=== PATIENT | female | born 1990 | race Caucasian/White ===

== ENCOUNTER 2021-01-24 10:57 | Emergency (ER) | payer OTHER, SELFPAY ==
[2021-01-24 11:20] VITALS: BP 136/94; PULSE 71; RESP 18; TEMP 36.5; O2SAT 99
--- NOTE | 2021-01-24 12:52 | ED.WOUNDLAC ---
HPI - Wound/Laceration General Chief Complaint: Wound/Laceration Stated Complaint: laceration finger Time Seen by Provider: 01/24/21 12:08 History of Present Illness HPI narrative: She was in a store and a counter top fell onto her right hand. She had significant bleeding from her hand and was not able to clearly view the injury, so she came in to get it sutured. After arriving the bleeding stopped and she now realizes that she has only a small skin avulsion. She denies any other injury. Pain is mild. Related Data Allergies Allergy/AdvReac Type Severity Reaction Status Date / Time Contrast Media Allergy Intermediate Rash Uncoded 01/24/21 11:17 PEANUTS Allergy Unknown ANAPHYLATIC Uncoded 01/24/21 11:17 REACTION. Review of Systems Review of Systems: All systems reviewed & are unremarkable except as noted in HPI and below Constitutional: Constitutional: Reports no additional constitutional complaints Respiratory: Respiratory: Denies dyspnea Musculoskeletal: Musculoskeletal: Denies back pain Neurologic: Denies numbness and Denies weakness [facility] Past Medical History Medical History Anxiety Attention deficit disorder Dyshidrotic eczema HLD (hyperlipidemia) PCOS (polycystic ovarian syndrome) Surgical History Surgical History History of cholecystectomy (~2010) Hx of tonsillectomy Previous section Family History Family History Father Hypertension Heart disease Diabetes mellitus Leukemia Grandparent Hypertension Heart disease Diabetes mellitus Depression Mother Lymphoma Hypertension Heart disease Diabetes mellitus Social History Social History Smoking status: Never smoker Tobacco type: cigarettes Alcohol intake: current Substance use: unknown Gender identity (if verbalized by the patient): Female Exam Const: General: healthy appearing, no acute distress and alert Orientation/consciousness: patient oriented x3 HENMT: Head: normal to inspection Resp: Effort & Inspection: normal respiratory effort Cardio: Other: 2+ right radial pulse Skin: Other: 1 cm skin avulsion to right thenar eminence Neuro: Other: motor and sensation intact Extrem: Other: Full Rom Course Vital Signs Vital signs: Vital Signs Temperature 36.5 C 01/24/21 11:20 Pulse Rate 71 01/24/21 11:20 Respiratory Rate 18 01/24/21 11:20 Blood Pressure 136/94 H 01/24/21 11:20 Pulse Oximetry 99 01/24/21 11:20 Temperature 36.5 C 01/24/21 11:20 Pulse Rate 71 01/24/21 11:20 Respiratory Rate 18 01/24/21 11:20 Blood Pressure 136/94 H 01/24/21 11:20 Pulse Oximetry 99 01/24/21 11:20 MDM - Wound/Laceration Differential Diagnosis Differential diagnosis: Likely avulsion of skin Discharge Plan Discharge Clinical Impression: Avulsion of skin of right hand Patient Disposition: Home, Self-Care Condition: Stable Instructions: Skin Avulsion (ED) Prescriptions: No Action duloxetine 60 mg capsule,delayed release(DR/EC) 60 mg PO DAILY Qty: 30 RF: 3 gabapentin 300 mg capsule 300 mg PO QHS Qty: 30 RF: 3 nabumetone 500 mg tablet 500 mg PO BID Qty: 60 RF: 1 Follow-up/Referrals: Shannon Winchester MD [Primary Care Provider] -
== END 2021-01-24 13:20 | disposition home or self-care (01) ==
PROVIDERS: Emergency Provider Emergency Medicine; PCP Family Medicine
DX: S61.401A Unspecified open wound of right hand, initial encounter (principal); E78.5 Hyperlipidemia, unspecified; E28.2 Polycystic ovarian syndrome; W20.8XXA Other cause of strike by thrown, projected or falling object, initial encounter
CPT/HCPCS: 99282

== ENCOUNTER 2021-02-28 19:05 | Emergency (ER) | payer OTHER, SELFPAY ==
[2021-02-28 19:13] VITALS: BP 186/109; PULSE 104; RESP 20; TEMP 36.6; O2SAT 99
[2021-02-28 19:37] LABS: Basophils Absolute Auto 0.1 K/mm3 (0.0-0.1); Basophils Percent Auto 0.7 % (0.2-1.2); Eosinophils Absolute Auto 0.5 K/mm3 (0-0.3); Eosinophils Percent Auto 4.5 % (0-4.4); Hematocrit 45.6 % (37.0-47.0); Hemoglobin 15.2 g/dL (12.0-15.0); Immature Granulocyte Absolute 0.03 K/mm3 (0.00-0.031); Immature Granulocyte Percent A 0.3 % (0-0.5); Lymphocytes Absolute Auto 3.85 K/mm3 (0.9-3.2); Lymphocytes Percent Auto 36.6 % (18.3-44.2); Mean Corpuscular HGB Conc 33.3 g/dl (32-36); Mean Corpuscular Hemoglobin 30.3 pg (26-34); Mean Corpuscular Volume 90.8 fl (80-100); Mean Platelet Volume 9.9 fl (7.4-10.4); Monocytes Absolute Auto 0.6 K/mm3 (0.1-0.6); Monocytes Percent Auto 5.3 % (2.6-8.5); Neutrophils Absolute Auto 5.6 K/mm3 (1.3-6.7); Neutrophils Percent Auto 52.6 % (45.5-73.1); Platelet Count Result 360 k/mm3 (150-375); Red Blood Count 5.02 M/mm3 (4.2-5.4); White Blood Count 10.5 K/mm3 (4.5-10.0)
[2021-02-28 19:38] LABS: Alanine Aminotransferase 23 U/L (4-35); Albumin Level 4.8 g/dL (3.5-5.1); Alkaline Phosphatase 76 U/L (38-126); Anion Gap 12 mmol/L (8-16); Aspartate Amino Transferase 34 U/L (14-36); Bilirubin,Total 0.9 mg/dL (0.2-1.3); Blood Urea Nitrogen 18 mg/dL (7-17); Calcium 9.5 mg/dL (8.4-10.2); Carbon Dioxide 22 mmol/L (22-30); Chloride 105 mmol/L (98-107); Estimated CRCL calculation 126 ml/min; Estimated Glomerular Filt Rate > 60; Glucose 89 mg/dL (65-110); Lipase 98 U/L (23-300); Potassium 4.3 mmol/L (3.4-5.0); Sodium 139 mmol/L (137-145)
[2021-02-28 20:33] LABS: Add Urine Microscopic? YES; Appearance Urine Clear (Clear); Bilirubin Urine Negative (Negative); Blood Urine 1+ (Negative); Color Urine Yellow (Yellow); Glucose Urine UA Negative (Negative); Ketones Urine Negative (Negative); Leukocyte Esterase Ur Negative LEU/UL (Negative); Mucus Urine Rare /lpf; Nitrate Urine Negative (Negative); Protein Urine Negative (Negative); RBC Urine 0-2 /hpf (0-2); Specific Grav Ur 1.013 (1.001-1.035); Squamous Epithelial Cell Urine Rare /hpf (Few); Urobilinogen Urine Negative mg/dL (<2.0); WBC Urine 0-3 /hpf
--- NOTE | 2021-02-28 21:02 | PC.NURSE ---
Pt ambulated to desk with steady, even gait. reported she was leaving and her boyfriend would pick her up. seen leaving waiting room.
== END 2021-02-28 21:20 | disposition left against medical advice (07) ==
LOC: ANHED 21:10
PROVIDERS: Emergency Provider Emergency Medicine; PCP Family Medicine
DX: R10.2 Pelvic and perineal pain (principal)
CPT/HCPCS: 36415; 80053; 81001; 81025; 83690; 85025; 99199

== ENCOUNTER 2021-03-01 08:32 | Emergency (ER) | payer OTHER, SELFPAY ==
[2021-03-01 08:36] VITALS: BP 155/99; PULSE 130; RESP 18; TEMP 37.1; O2SAT 99
--- NOTE | 2021-03-01 08:46 | ED.EXTPRO ---
HPI - Extremity Problem General Chief complaint: Extremity Problem,Nontraumatic Stated complaint: left hip pain Time Seen by Provider: 03/01/21 08:45 History of Present Illness HPI Narrative: 30 yo female w/ h/o fibromyalgia presents to the ED for left hip pain. She has had pain in the left hip and buttock radiating down the lateral portion of the leg fr the past few days. She has had similar pain before, but never this severe. She also has lower abdominal cramping. She has been taking naproxen without relief. Related Data Allergies Allergy/AdvReac Type Severity Reaction Status Date / Time peanut Allergy Severe Anaphylactic Verified 03/01/21 09:03 Shock Iodinated Contrast Media Allergy Unknown Rash Verified 03/01/21 09:03 Review of Systems Review of Systems: All systems reviewed & are unremarkable except as noted in HPI and below Constitutional: Constitutional: Denies chills and Denies fever(s) ENT: Reports system reviewed and no additional complaints, except as documented Cardiovascular: Cardiovascular: Denies chest pain Respiratory: Respiratory: Denies dyspnea Gastrointestinal: Gastrointestinal: Reports as per HPI Genitourinary: Genitourinary: Denies hematuria and Denies dysuria Neurologic: Denies dizziness and Denies weakness [facility] Past Medical History Medical History Anxiety Attention deficit disorder Dyshidrotic eczema HLD (hyperlipidemia) PCOS (polycystic ovarian syndrome) Surgical History Surgical History History of cholecystectomy (~2010) Hx of tonsillectomy Previous section Family History Family History Father Hypertension Heart disease Diabetes mellitus Leukemia Grandparent Hypertension Heart disease Diabetes mellitus Depression Mother Lymphoma Hypertension Heart disease Diabetes mellitus Social History Social History Smoking status: Never smoker Tobacco type: cigarettes Alcohol intake: current Substance use: unknown Gender identity (if verbalized by the patient): Female Exam Const: General: healthy appearing, no acute distress and alert Orientation/consciousness: patient oriented x3 HENMT: Head: normal to inspection Resp: Effort & Inspection: normal respiratory effort Auscultation: clear to auscultation bilaterally, no rales, no rhonchi and no wheezes Cardio: Jugular venous distension: no JVD Rate: regular rate Rhythm: regular rhythm Heart sounds: no murmurs GI: Inspection: non-distended GI Palp: Yes Soft to palpation and No Tenderness to palpation present (GI) Back/Spine/Pelvis: Thoracic/Lumbar Spine: straight leg raise positive (left) Skin: General skin exam: normal color Neuro: General: patient oriented x3 and moves all extremities Speech: normal speech Extrem: General: no edema Psych: Appearance: well kempt Affect: Sad affect present and Anxious affect present Course Vital Signs Vital signs: Vital Signs Temperature 37.1 C 03/01/21 08:36 Pulse Rate 130 H 03/01/21 08:36 Respiratory Rate 18 03/01/21 08:36 Blood Pressure 155/99 H 03/01/21 08:36 Pulse Oximetry 99 03/01/21 08:36 Temperature 37.1 C 03/01/21 08:36 Pulse Rate 88 03/01/21 10:28 Respiratory Rate 16 03/01/21 10:28 Blood Pressure 134/77 03/01/21 10:28 Pulse Oximetry 100 03/01/21 10:28 MDM - Extremity (Nontraumatic) MDM Narrative Medical decision making narrative: sciatica on exam Discharge Plan Discharge Clinical Impression: Sciatica Qualifiers: Laterality: left Qualified Code(s): M54.32 - Sciatica, left side Patient Disposition: Home, Self-Care Condition: Stable Instructions: Sciatica (ED) Prescriptions: New methylprednisolone [Medrol (Justo)] 4 mg tablets,dose pack See Rx
[2021-03-01] MEDS: traMADol HCL (*CRX) 50 MG TABLET PO (09:10)
[2021-03-01 10:28] VITALS: BP 134/77; PULSE 88; RESP 16; O2SAT 100
== END 2021-03-01 10:30 | disposition home or self-care (01) ==
PROVIDERS: Emergency Provider Emergency Medicine; PCP Family Medicine
DX: M54.32 Sciatica, left side (principal); E78.5 Hyperlipidemia, unspecified; E28.2 Polycystic ovarian syndrome
CPT/HCPCS: 96372; 99283; A9270; J1100

== ENCOUNTER 2021-03-11 13:56 | Outpatient (CLI) | payer OTHER, SELFPAY ==
--- NOTE | ~2021-03-11 | XR_ITS ---
XR sacroiliac joints min 3V DATE: 03/11/2021 14:44 INDICATION: Back pain, severe low back pain. TECHNIQUE: AP and bilateral oblique views of the sacroiliac joints COMPARISON: None FINDINGS: The sacral iliac joints are intact. No erosive change or ankylosis. The pubic symphysis simon ears normally aligned. IMPRESSION: Negative Reviewed, dictated and finalized at [facility]. Reviewed, dictated and finalized at [facility]. IMPRESSION: Negative
--- NOTE | ~2021-03-11 | XR_ITS ---
XR lumbar spine min 4V DATE: 03/11/2021 14:44 INDICATION: Back pain TECHNIQUE: AP, lateral, bilateral oblique and coned lateral lumbosacral views COMPARISON: 11/11/2011 lumbar spine FINDINGS: There is mild dextro scoliosis of the lumbar spine. No fracture or bone destruction, spondy lolysis or spondylolisthesis is detected. The lumbar pedicles are intact. There is mild degenerative disc disease at L3-4 and moderate degenerative disc disease at L4-5 and L5 -S1. The sacroiliac joints are normal. IMPRESSION: Mild is a scoliosis Mild to moderate degenerative disc disease of the mid and lower lumbar spine Reviewed, dictated and finalized at [facility].
== END 2021-03-11 13:57 | disposition home or self-care (01) ==
LOC: ANHIMG 13:57
PROVIDERS: PCP Family Medicine; Visit Provider Family Medicine
DX: M54.9 Dorsalgia, unspecified (principal); M41.86 Other forms of scoliosis, lumbar region; M51.36 Other intervertebral disc degeneration, lumbar region
CPT/HCPCS: 72110; 72202

== ENCOUNTER 2021-04-03 12:30 | Outpatient (RCR) | payer OTHER, SELFPAY ==
--- NOTE | 2021-03-31 10:56 | PTOPEVAL ---
Thank you for referring Jenifer Ashford to [facility].? The patient is scheduled to be seen for therapy? 1-2 x/week for 8 weeks. Please review, sign, date and return this plan of care CHAS. I agree with and certify that the following plan of care is medically necessary. Referring Physician Date Attending Provider: Shannon Winchester MD Diagnosis sciatica and sacrococcygeal disorder Onset 6 months Additional Evaluation Detail Has a TENS unit and massage gun which are no longer helping. Subjective Information She reports increased back Query Text:As Reported By Patient/ pain 6 months ago with Family increased symptoms 1 month ago. She did fall downs steps 3 months ago. She started having heel pain which progressed into left hip with shooting. Reports decreased WB on left LE due to radiating pain. She has 4 yr old and puppy at home. 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 Prior to injury she was walking 12,000 steps and was exercising and lost 37#. She is performing yoga and stretching program. She is unable to WB on left hip or LE in seated or standing position without numbness and tingling into LE. Pain Assessment Lower Back Reported Pain Level 6 Pain Description Numbness,Radiating,Shooting, Tingling Pain Radiation Left Leg Pain Frequency Chronic,Continuous Lowest Pain Intensity 2 Greatest Pain Intensity 10 Pain Aggravating Factors ADL's,Bending,Exercise/ Activity,Walking,Weight Bearing/Standing Pain Behaviors Anxious Cervical and Lumbar ROM Lumbar ROM Lumbar Comments seated: full flex, 50% rotation jacqui with increased pain. Lower Extremity Range of Motion General Lower Extremity Range of Motion Reason Not Measured WNL/Left,WNL/Right Cervical and Lumbar Muscle Testing Lumbar Strength Upper Abdominal Strength 3-Fair- Lower Abdominal Strength 3-Fair- Upper Back Extension 3-Fair- Lower Back Extension 3-Fair- Lumbar Functional Strength Comments unable to achieve full upright
--- NOTE | 2021-04-07 09:33 | PCPTNOTE ---
Patient cancelled scheduled appointment and all future appointments due to not having babysitting available for child because of the new COVID restrictions.
--- NOTE | 2021-04-24 08:16 | PCPTNOTE ---
Admitting Provider: Attending Provider: Shannon Winchester MD Patient:Jenifer Ashford Date of :1990 Discharge Summary Patient has not returned for any further treatments since 04/03/2021, therefore she will be discharged at this time. Patient?s initial visit was on 03/31/2021 09:30 and she had a total of 2 visits. The goals have been not met at this time. Thank you for referring this patient to [facility]. Please review, sign, date and return this discharge summary CHAS. I have been updated about the patient's current status and I agree with discharge from the above service at this time. Referring Physician Date
== END 2021-04-24 13:46 | disposition home or self-care (01) ==
LOC: ANHPT 12:30
PROVIDERS: PCP Family Medicine; Visit Provider Family Medicine
DX: M53.3 Sacrococcygeal disorders, not elsewhere classified (principal); M54.30 Sciatica, unspecified side
CPT/HCPCS: 97110; 97140; 97162